=== PATIENT | female | born 1960 | race Two or more races ===

== ENCOUNTER 2021-03-15 07:01 | Day surgery (SDC) | payer OTHER ==
[~2021-03-15 07:01] MED LIST: ACETAMINOPHEN500 M2 PO; ADVAIR 100-501 EACH IH; ADVAIR IH; AZOR 10-40 MG1 EACH PO; NASAL MIST126 ML
== END 2021-03-15 12:40 | disposition home or self-care (01) ==
LOC: AMB-ENDOS 07:01
PROVIDERS: ATTEND Surgery
DX: K62.89 Other specified diseases of anus and rectum (principal); Z20.822 Contact with and (suspected) exposure to COVID-19